=== PATIENT | female | born 1990 | race Hispanic/Latino ===

== ENCOUNTER 2023-07-21 09:31 | Emergency (ER) | payer MEDICAID, OTHER ==
[~2023-07-21] VITALS: Ht 154.9 cm; Wt 68.0 kg
[2023-07-21 09:34] VITALS: BP 120/69; PULSE 99; RESP 18; O2SAT 98
[2023-07-21 10:20] LABS: RAPID GROUP A STREP negative (NEGATIVE)
[2023-07-21 10:21] LABS: SARS-CoV-2, RNA, NAAT NEGATIVE SARS CoV-2 (NEGATIVE)
[2023-07-21 10:22] LABS: INFLUENZA TYPE B Negative For Type B (NEGATIVE)
[2023-07-21 10:23] LABS: INFLUENZA TYPE A Positive For Type A (NEGATIVE)
[2023-07-21] MEDS ORDERED: OSELTAMIVIR PHOSPHATE 75 MG CAP PO ONE (10:30)
[2023-07-21] MEDS ORDERED: IBUPROFEN 600 MG TABLET PO ONE (10:30)
[2023-07-21] MEDS ORDERED: BENZONATATE 100 MG CAPSULE PO ONE (10:30)
[2023-07-21] MEDS ORDERED: BROM118S48 PO (10:32)
[2023-07-21] MEDS ORDERED: OSEL75 PO (10:32)
== END 2023-07-21 10:42 | disposition home or self-care (01) ==
LOC: EDH 09:31
DX: J10.1 Influenza due to other identified influenza virus with other respiratory manifestations (principal); Z20.822 Contact with and (suspected) exposure to COVID-19; Z79.899 Other long term (current) drug therapy; Z98.890 Other specified postprocedural states
CPT/HCPCS: 99284; 71045; 87635; 87880; 87804 ×2; C9803

== ENCOUNTER 2024-11-12 17:02 | Emergency (ER) | payer OTHER ==
[~2024-11-12] VITALS: Ht 154.9 cm; Wt 68.0 kg
[~2024-11-12 17:02] MED LIST: BROM118S48 PO; OSEL75 PO
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
[2024-11-12 17:30] VITALS: BP 124/69; PULSE 89; RESP 18; TEMP 98.2; O2SAT 96
[2024-11-12] MEDS: acetaMINOPHEN 500 MG TABLET PO ONE (18:15)
[2024-11-12] MEDS ORDERED: CYCL-309 PO (18:32)
[2024-11-12] MEDS ORDERED: IBUP-2077 PO (18:32)
--- NOTE | 2024-11-12 21:39 | HMCIMG ---
LUMBAR SPINE RADIOGRAPHS - 2-3 VIEWS INDICATION: Back pain COMPARISON: None FINDINGS: AP, lateral, and coned-down lateral views. Examination provided for interpretation at 9:36 PM on 11/12/2024. Normal lordotic curvature of the lumbar spine is maintained. Five nonrib-bearing lumbar vertebral bodies are noted. No acute fracture or subluxation identified. Vertebral body heights are well-maintained. Disc spaces are well-preserved. Gallbladder is filled with stones. IMPRESSION: No fracture or subluxation identified. Cholelithiasis.
--- NOTE | 2024-11-12 21:48 | HMCIMG ---
CERVICAL SPINE RADIOGRAPHS - 2-3 VIEWS INDICATION: Pain COMPARISON: None FINDINGS: AP, lateral, and odontoid views. Examination provided for interpretation at 9:46 PM on 11/12/2024. Straightening of the normal lordosis may be related to overlying muscle spasm and/or patient positioning. No acute fracture or malalignment identified. Prevertebral soft tissues are not swollen. The atlanto-dens interval is within normal limits for patient's age. Spot view of the odontoid is without evidence for fracture. Vertebral body heights are within normal limits. Disc heights are well preserved. Mild C7-T1 facet disease. Visible lung apices are clear. IMPRESSION: No acute fracture or subluxation identified.
== END 2024-11-12 18:38 | disposition home or self-care (01) ==
LOC: EDH 17:02
DX: S16.1XXA Strain of muscle, fascia and tendon at neck level, initial encounter (principal); S39.012A Strain of muscle, fascia and tendon of lower back, initial encounter; V89.2XXA Person injured in unspecified motor-vehicle accident, traffic, initial encounter; Y93.89 Activity, other specified; Y92.89 Other specified places as the place of occurrence of the external cause; Y99.8 Other external cause status
CPT/HCPCS: 72040; 72100; 81025; 99284